=== PATIENT | male | born 1960 | race American Indian/Alaskan Native ===

== ENCOUNTER 2019-12-06 13:52 | Emergency (ER) | payer SELFPAY ==
--- NOTE | 2019-12-06 15:07 | Event Note ---
ED Screening Note Date of service: 12/06/19 Time: 14:56 ED Screening Note: 59 y o male presents with upper lip swelling and pain stating unsure of bite pt did note a suidal thoughts within last month with plans to slit wrist but called the hotline and got help Pt denies SI today and reports feeling better This initial assessment/diagnostic orders/clinical plan/treatment(s) is/are subject to change based on patients health status, clinical progression and re- assessment by fellow clinical providers in the ED. Further treatment and workup at subsequent clinical providers discretion. Patient/guardian urged not to elope from the ED as their condition may be serious if not clinically assessed and managed. Initial orders include: [facility] eval Mental Health eval Environmental safety checklist ID?
[2019-12-06] MEDS ORDERED: IBUPROFEN 800 MG TAB PO ONE (19:43)
[2019-12-06] MEDS ORDERED: cephALEXin 500 MG CAP PO ONE (19:43)
--- NOTE | 2019-12-06 20:13 | Emergency Department Report ---
Abscess Boil HPI - HPI Chief Complaint: Skin/Abscess/Foreign Body Stated Complaint: LIPS SWOLLEN Time Seen by Provider: 12/06/19 19:30 Duration: 2 Days Location: Other (left upper lip abscess cellulitis) History: Yes Pain, Yes Purulent Drainage, No Fever, No Numbness, No Foreign Body, No Previous History, No Insect Bite HPI: states ingrown hair that got infected, drain purulent drainage at this time, pt states he drained himself. there is no fever, no n/v, no facial or gum swelling. no n/v pt it tolerating po intake, denies dental pain , no throat or ear pain Home Medications: Previous Rx's Medication Instructions Recorded Last Taken Type Ibuprofen [Motrin 800 MG tab] 800 mg PO Q8HR PRN #30 tablet 12/06/19 Unknown Rx cephALEXin [Keflex] 500 mg PO TID 10 Days #30 cap 12/06/19 Unknown Rx Allergies/Adverse Reactions: Allergies Allergy/AdvReac Type Severity Reaction Status Date / Time No Known Allergies Allergy Unverified 12/06/19 14:22 ED Review of Systems ROS: Stated complaint: LIPS SWOLLEN Other details as noted in HPI ED Past Medical Hx - Past Medical History Previous Medical History?: No - Surgical History Past Surgical History?: No - Social History Smoking Status: Current Every Day Smoker Substance Use Type: Alcohol - Medications Home Medications: Home Medications Medication Instructions Recorded Confirmed Last Taken Type Ibuprofen [Motrin 800 MG tab] 800 mg PO Q8HR PRN #30 tablet 12/06/19 Unknown Rx cephALEXin [Keflex] 500 mg PO TID 10 Days #30 cap 12/06/19 Unknown Rx ED Abscess Boil Physical Exam - Exam General: left upper lip abscess small less than 1 cm draining , mild surround erythema, mild swelling , Vital signs noted. No distress. Alert and acting appropriately. Size: 1 cm Exam: Yes Tenderness, Yes Surrounding Cellulites/Erythema, Yes Normal Neurologic Exam, Yes Normal Circulation, No Fluctuance, No Lymphangitis, No Crepitation, No Heart Murmur ED Course Vital Signs 12/06/19 12/06/19 14:23 19:54 Temperature 98.9 F Pulse Rate 84 Respiratory 16 18 Rate Blood Pressure 148/92 O2 Sat by Pulse 95 Oximetry - Reevaluation(s) Reevaluation #1: 12/06/19 20:20 Critical care attestation.: If time is entered above; I have spent that time in minutes in the direct care of this critically ill patient, excluding procedure time. ED Medical Decision Making - Medical Decision Making pt decline further I&D, plan: keflex, ibuprofen, warm compresses. follow up with pcp in 2-3 days. pt verbalized agreement and understanding of discharg paln. Pt denies SI or HI, no ideation , plan, no attempt, denies need for psych evaluation as stated in triage, will be dc'd to home in stable condition, will follow up with [facility] tomorrow. 12/06/19 20:17 ED Disposition Clinical Impression: Abscess, lip Disposition: DC-01 TO HOME OR SELFCARE Is pt being admited?: No Does the pt Need Aspirin: No Condition: Stable Instructions: Abscess (ED) Prescriptions: cephALEXin [Keflex] 500 mg PO TID 10 Days #30 cap Ibuprofen [Motrin 800 MG tab] 800 mg PO Q8HR PRN #30 tablet PRN Reason: pain fever Referrals: PRIMARY CARE,MD [Primary Care Provider] - 3-5 Days Forms: Work/School Release Form(ED) Time of Disposition: 20:12
[2019-12-06 20:42] VITALS: BP 174/107
== END 2019-12-06 20:20 | disposition home or self-care (01) ==
LOC: ED 13:52
DX: K13.0 Diseases of lips (principal); F17.200 Nicotine dependence, unspecified, uncomplicated; Z79.1 Long term (current) use of non-steroidal anti-inflammatories (NSAID); Z79.899 Other long term (current) drug therapy